=== PATIENT | female | born 1960 | race Caucasian/White ===

== ENCOUNTER 2017-07-23 13:09 | Emergency (ER) | payer MEDICARE, MEDICAID ==
[2017-07-23] MEDS ORDERED: Heparin Sodium 5,000 Units/ML Vial IVPUSH ONE (14:09)
[2017-07-23] MEDS ORDERED: Heparin Sodium/0.45% NaCl 25,000 UNITS/500 ML BAG IV ONE (14:10)
[2017-07-23] MEDS ORDERED: cefTRIAXone 1 GM Vial IVPUSH ONE (14:10)
--- NOTE | 2017-07-23 14:21 | EDM.PDOC ---
ED HPI GENERAL MEDICAL PROBLEM - General Chief Complaint: Cardiovascular Problem Stated Complaint: [id number] CHEST PAIN Time Seen by Provider: 07/23/17 13:40 Source of Information: Reports: Patient History Limitations: Reports: No Limitations - History of Present Illness INITIAL COMMENTS - FREE TEXT/NARRATIVE: This 57 yo female patient was sent to the ED from the [facility] due to increased shortness of breath, generalized body aches, elevated WBC, elevated Trop, creat 3.5, d-dimer 4470 and EKG showing sinus tach. Onset: Gradual Onset Date: 07/21/17 Duration: Day(s):, Constant, Getting Worse Location: Reports: Chest, Abdomen, Generalized Quality: Reports: Ache, Dull Severity: Moderate Improves with: Reports: None Worsens with: Reports: None Associated Symptoms: Reports: Cough, Shortness of Breath - Related Data Allergies Allergy/AdvReac Type Severity Reaction Status Date / Time lisinopril Allergy Nausea Verified 07/23/17 13:21 Home Meds: Home Meds Aspirin [Halfprin] 81 mg PO DAILY 07/23/17 [History] Cyanocobalamin (Vitamin B-12) [B-12] 1,000 mcg PO DAILY 07/23/17 [History] DULoxetine HCl [Duloxetine HCl] 30 mg PO DAILY 07/23/17 [History] Furosemide 20 mg PO DAILY 07/23/17 [History] Gabapentin [Neurontin] 100 mg PO DAILY 07/23/17 [History] Levothyroxine 112 mcg PO DAILY 07/23/17 [History] Loperamide [Imodium] 2 mg PO DAILY 07/23/17 [History] Multivit-Min/Iron Fum/Folic AC [Jhyvq-Eaksvex-Imohgbrs Tablet] 1 tab PO DAILY [History] Multivitamin [Daily Multiple Vitamin] 1 tab PO DAILY 07/23/17 [History] Ashby-3/DHA/Epa/Fish Oil [Ashby-3 Fish Oil 1,000 MG Sfgl] 1,000 mg PO DAILY [History] Simvastatin 40 mg PO DAILY 07/23/17 [History] Past Medical History HEENT History: Reports: Impaired Vision 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 Below) Other OB/BYN History: vulva cancer Endocrine/Metabolic History: Reports: Hyperthyroidism - Past Surgical History Female Surgical History: Reports: Other (See Below) Other Female Surgeries/Procedures: vulva cancer Musculoskeletal Surgical History: Reports: Other (See Below) Other Musculoskeletal Surgeries/Procedures:: left knee surgery Social & Family History - Family History Family Medical History: Noncontributory - Tobacco Use Smoking Status *Q: Current Every Day Smoker Years of Tobacco use: 20 Packs/Tins Daily: 0.5 - Caffeine Use Caffeine Use: Reports: Soda - Recreational Drug Use Recreational Drug Use: No ED ROS GENERAL - Review of Systems Review Of Systems: ROS reveals no pertinent complaints other than HPI. ED EXAM, GENERAL - Physical Exam Exam: See Below Exam Limited By: No Limitations General Appearance: Alert, WD/WN, Moderate Distress Eye Exam: Bilateral Eye: EOMI, Normal Inspection, PERRL Ears: Normal External Exam, Normal Canal, Hearing Grossly Normal, Normal TMs Nose: Normal Inspection, Normal Mucosa, No Blood Throat/Mouth: Normal Inspection, Normal Lips, Normal Teeth, Normal Gums, Normal Oropharynx, Normal Voice, No Airway Compromise Head: Atraumatic, Normocephalic Neck: Normal Inspection, Supple, Non-Tender, Full Range of Motion Respiratory/Chest: No Respiratory Distress, Lungs Clear, Normal Breath Sounds, No Accessory Muscle Use, Chest Non-Tender Cardiovascular: Normal Peripheral Pulses, Regular Rate, Rhythm, No Edema, No Gallop, No JVD, No Murmur, No Rub GI/Abdominal: Normal Bowel Sounds, Soft, Non-Tender, No Organomegaly, No Distention, No Abnormal Bruit, No Mass (Female) Exam: Deferred Rectal (Female) Exam: Deferred Back Exam: Normal Inspection, Full Range of Motion, NT Extremities: Normal Inspection, Normal Range of Motion, Non-Tender, Normal Capillary Refill, No Pedal Edema Neurological: Alert, Oriented, CN II-XII Intact, Normal Cognition, Normal Gait, Normal Reflexes, No Motor/Sensory Deficits Psychiatric: Normal Affect, Normal Mood Skin Exam: Warm, Dry, Intact, Normal Color, No Rash Lymphatic: No Adenopathy Course - Vital Signs Last Recorded V/S: Last Vital Signs Temp 37.6 C 07/23/17 13:22 Pulse 106 H 07/23/17 13:22 Resp 20 07/23/17 13:22 BP 140/64 07/23/17 13:22 Pulse Ox 91 L 07/23/17 13:22 - Orders/Labs/Meds Orders: Active Orders 24 hr Category Date Time Status EKG Documentation Completion [RC] URGENT Care 07/23/17 13:25 Ordered LACTIC ACID [CHEM] Stat Lab 07/23/17 13:51 Ordered UA W/MICROSCOPIC [URIN] Stat Lab 07/23/17 13:25 Ordered Heparin Sodium/0.45% NaCl [Heparin 25,000 Units in 1/2 Med 07/23/17 14:10 Ordered NS 500 ML] 25,000 units in 500 ml IV ONETIME Medication Orders Heparin Sodium/Sodium Chloride (Heparin 25,000 Units In 1/2 Ns 500 Ml) 25,000 units in 500 mls @ 31.57 mls/hr IV ONETIME ONE Stop: 07/24/17 06:00 Labs: Laboratory Tests 07/23/17 Range/Units 13:46 Urine Color Yellow (YELLOW) Urine Appearance Cloudy (CLEAR) Urine pH 7.0 (5.0-9.0) Ur Specific [place] 1.015 (1.005-1.030) Urine Protein >=300 H (NEGATIVE) Urine Glucose (UA) Negative (NEGATIVE) Urine Ketones Negative (NEGATIVE) Urine Occult Blood Moderate H (NEGATIVE) Urine Nitrite Positive H (NEGATIVE) Urine Bilirubin Negative (NEGATIVE) Urine Urobilinogen 0.2 (0.2-1.0) mg/dL Ur Leukocyte Esterase Small H (NEGATIVE) Urine RBC 30-40 H /HPF Urine WBC 75-100 H (0-5/HPF) /HPF Ur Epithelial Cells Moderate H /HPF Urine Bacteria Many H (0-FEW/HPF) /HPF Urine Mucus Not seen /LPF Meds: Medications Generic Name Dose Route Start Last Admin Trade Name Freq PRN Reason Stop Dose Admin Heparin Sodium/Sodium Chloride 25,000 units in 500 mls @ 31.57 mls/hr 14:10 Heparin 25,000 Units In 1/2 Ns 500 Ml IV 07/24/17 06:00 ONETIME ONE 12 UNITS/KG/HR Discontinued Medications Generic Name Dose Route Start Last Admin Trade Name Freq PRN Reason Stop Dose Admin Ceftriaxone Sodium 1 gm 07/23/17 14:10 Rocephin IVPUSH 07/23/17 14:11 ONETIME ONE Heparin Sodium (Porcine) 4,000 units 07/23/17 14:09 Heparin Sodium IVPUSH 07/23/17 14:10 .BOLUS ONE Departure - Departure Time of Disposition: 14:08 Disposition: DC/Tfer to Acute Hospital 02 Reason for Transfer *Q: Other Condition: Poor Clinical Impression: NSTEMI (non-ST elevated myocardial infarction) Leukocytosis Qualifiers: Leukocytosis type: bandemia Qualified Code(s): D72.825 - Bandemia Forms: Interfacility Transfer EMTALA Care Plan Goals: Discussed the examination, lab, EKG and history with Dr. Coleman. Dr. Coleman accepted the patient for continued evaluation and further management. The patient will be transported by [facility]. - My Orders Last 24 Hours: My Active Orders 07/23/17 13:25 EKG Documentation Completion [RC] URGENT UA W/MICROSCOPIC [URIN] Stat 07/23/17 13:51 LACTIC ACID [CHEM] Stat 07/23/17 14:10 Heparin Sodium/0.45% NaCl [Heparin 25,000 Units in 1/2 NS 500 ML] 25,000 units in 500 ml IV ONETIME - Assessment/Plan Last 24 Hours: My Active Orders 07/23/17 13:25 EKG Documentation Completion [RC] URGENT UA W/MICROSCOPIC [URIN] Stat 07/23/17 13:51 LACTIC ACID [CHEM] Stat 07/23/17 14:10 Heparin Sodium/0.45% NaCl [Heparin 25,000 Units in 1/2 NS 500 ML] 25,000 units in 500 ml IV ONETIME
--- NOTE | 2017-07-24 14:20 | EKG ---
07/23/2017 - KARLA LEONARD I reviewed the EKG and agree with the machine's reading. [facility] /[id number]
== END 2017-07-23 14:41 ==
LOC: DL.ED 13:09
DX: I21.4 Non-ST elevation (NSTEMI) myocardial infarction (principal); D72.825 Bandemia; E05.90 Thyrotoxicosis, unspecified without thyrotoxic crisis or storm; F17.210 Nicotine dependence, cigarettes, uncomplicated; Z88.8 Allergy status to other drugs, medicaments and biological substances; Z79.82 Long term (current) use of aspirin; Z79.899 Other long term (current) drug therapy
CPT/HCPCS: 36415; 81001; 83605; 93005; 93010; 96374; 96375; 96376; 99285; J0696; J1644

== ENCOUNTER 2018-10-07 05:36 | Day surgery (SDC) | payer MEDICARE, MEDICAID ==
[2018-10-07] MEDS ORDERED: Midazolam 1 MG/ML 2 ML SDV IV ONE (05:37)
[2018-10-07] MEDS ORDERED: fentaNYL 100 MCG/2 ML SDV IV ONE (05:37)
[2018-10-07] MEDS ORDERED: Sodium Chloride 0.9% 10 ML Syringe FLUSH PRN (06:00)
[2018-10-07] MEDS: Dextrose 5%-0.45% NaCl 1,000 ML IV SCH (06:05)
[2018-10-07] MEDS ORDERED: fentaNYL 100 MCG/2 ML SDV ONE (06:14)
[2018-10-07] MEDS ORDERED: Midazolam 1 MG/ML 2 ML SDV ONE (06:14)
[2018-10-07] MEDS: fentaNYL 100 MCG/2 ML SDV IV ONE ×2 (06:27→06:28)
[2018-10-07] MEDS: Midazolam 1 MG/ML 2 ML SDV IV ONE ×4 (06:28→06:36)
--- NOTE | 2018-10-07 11:35 | OR ---
DATE: 10/07/2018 PROCEDURE: Total colonoscopy. INSTRUMENT USED: [id number] Olympus video colonoscope. PREMEDICATIONS: Fentanyl 100 mcg intravenous, Versed 3.5 mg intravenous, nasal O2 cannula. The procedure was done under pulse oximetry, BP recording, and master automotive glass technician. INDICATION: The patient with intermittent small volume rectal bleeding and positive SIT. Colonoscopic examination is done for detection of any polypoid lesions and removal, endoscopic hemostasis therapy if needed. DESCRIPTION OF PROCEDURE: Initial rectal exam showed extensive perianal excoriations and also external hemorrhoidal tags. Rigid anoscopy was normal. The colonoscope was passed with ease. Numerous scattered diverticula were noted in the distal left colon along with deformity. The scope was passed with ease up to the ileocecal area. Photographs were taken of the normal-appearing cecum, identified by landmarks of appendiceal orifice and double-bulged ileocecal folds. No bleeding was noted from any of the visualized areas at the commencement of the examination. There was some amount of fecal material that had to be aspirated. The bowel preparation was adequate, [place] Class 2 in all the regions. No stricture. No vascular ectasia. No large isolated ulcerations seen. No evidence of diffuse inflammatory bowel disease in the form of friability, contact bleeding, or ulcerations. No polyp or tumor mass identified. Probing the proximal sides of folds and flexures using adequate distention and clearing up the stool material, withdrawal of the scope was made. Cecum to rectum time over 6 minutes. No bleeding was noted from any of the visualized areas at the completion of examination. IMPRESSION: 1. External hemorrhoids. 2. Diverticulosis. The patient tolerated the procedure well. [facility] /[id number]
== END 2018-10-07 08:50 | disposition home or self-care (01) ==
LOC: DL.ENDO 05:36
PROVIDERS: ATTEND Internal Medicine Gastroenterology
DX: K57.31 Diverticulosis of large intestine without perforation or abscess with bleeding (principal); K64.4 Residual hemorrhoidal skin tags; D69.6 Thrombocytopenia, unspecified; I12.9 Hypertensive chronic kidney disease with stage 1 through stage 4 chronic kidney disease, or unspecified chronic kidney disease; N18.9 Chronic kidney disease, unspecified; E03.9 Hypothyroidism, unspecified; F17.210 Nicotine dependence, cigarettes, uncomplicated; E66.09 Other obesity due to excess calories; Z88.8 Allergy status to other drugs, medicaments and biological substances; Z79.899 Other long term (current) drug therapy
CPT/HCPCS: G0121; J2250; J3010; J7042

== ENCOUNTER 2019-05-04 09:10 | Inpatient (IN) | payer MEDICARE, MEDICAID ==
[2019-05-04] MEDS ORDERED: Ondansetron 4 MG/2 ML SDV IVPUSH PRN (14:47)
[2019-05-04] MEDS ORDERED: Docusate Sodium 100 MG Cap PO PRN (14:47)
[2019-05-04] MEDS ORDERED: Acetaminophen 325 MG Tab PO PRN (14:47)
[2019-05-04] MEDS ORDERED: Ondansetron 4 MG Tab.DIS PO PRN (14:47)
[2019-05-04] MEDS ORDERED: Furosemide 20 MG Tab PO PRN (14:57)
[2019-05-04] MEDS ORDERED: Sodium Chloride 0.9% 10 ML Syringe FLUSH SCH (15:00)
--- NOTE | 2019-05-04 15:04 | PCM.HP ---
H&P History of Present Illness - General Date of Service: 05/04/19 Admit Problem/Dx: Admission Diagnosis/Problem Admission Diagnosis/Problem Weakness Source of Information: Patient - History of Present Illness Initial Comments - Free Text/Narative: The patient is a 59-year-old female with medical history of hypertension, chronic kidney disease, hypothyroidism, peripheral neuropathy, depression. The patient underwent surgery right hip replacement in November 2018. The surgery site became infected and the patient had to proceed for another surgery. She underwent revision of right total hip arthroplasty in April 2019. Patient was found to have infection involving that joint. Cultures grew group B streptococcus. Patient is transferred to the [facility] for physical and occupational therapy. - Related Data Allergies/Adverse Reactions: Allergies Allergy/AdvReac Type Severity Reaction Status Date / Time lisinopril AdvReac Nausea Verified 05/04/19 10:06 Home Medications: Home Meds Aspirin [Halfprin] 81 mg PO BID 07/23/17 [History] Cyanocobalamin (Vitamin B-12) [B-12] 1,000 mcg PO DAILY 07/23/17 [History] Furosemide 20 mg PO ASDIRECTED PRN 07/23/17 [History] Gabapentin [Neurontin] 200 mg PO DAILY 07/23/17 [History] Loperamide [Imodium] 2 mg PO DAILY PRN 07/23/17 [History] Multivitamin [Daily Multiple Vitamin] 1 tab PO DAILY 07/23/17 [History] Simvastatin 40 mg PO DAILY 07/23/17 [History] Acetaminophen [Tylenol] 650 mg PO Q6HR 05/04/19 [History] DULoxetine [Cymbalta] 60 mg PO DAILY 05/04/19 [History] Levothyroxine 175 mcg PO DAILY 05/04/19 [History] Vit A/C/E AC/Znox/Cupric Oxide [Eye Vitamin-Minerals Tablet] 1 tab PO DAILY [History] oxyCODONE 5 mg PO Q4HR PRN 05/04/19 [History] Past Medical History HEENT History: Reports: Cataract, Impaired Vision, Macular Degeneration Cardiovascular History: Reports: High Cholesterol, Hypertension, Other (See Below) Other Cardiovascular History: VENOUS INSUFFICIENCY Respiratory History: Reports: None Gastrointestinal History: Reports: None Genitourinary History: Reports: Chronic Renal Insuffiency, Other (See Below) Other Genitourinary History: RENAL CYST, Urine Frequency 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) Other OB/BYN History: vulva cancer Musculoskeletal History: Reports: None Neurological History: Reports: None Psychiatric History: Reports: None Endocrine/Metabolic History: Reports: Hypothyroidism Hematologic History: Reports: None Immunologic History: Reports: None Oncologic (Cancer) History: Reports: Other (See Below) Other Oncologic History: vulvular cancer Dermatologic History: Reports: Cellulitis, Other (See Below) Other Dermatologic History: LYMPHEDEMA - Infectious Disease History Infectious Disease History: Reports: Chicken Pox, Influenza, Shingles - Past Surgical History Head Surgeries/Procedures: Reports: None HEENT Surgical History: Reports: None Cardiovascular Surgical History: Reports: None GI Surgical History: Reports: None Female Surgical History: Reports: Breast Biopsy, Other (See Below) Other Female Surgeries/Procedures: vulva cancer Musculoskeletal Surgical History: Reports: Hip Replacement, Other (See Below) Other Musculoskeletal Surgeries/Procedures:: left knee surgery, total hip in November 2018 and revision April 2019 Social & Family History - Family History Family Medical History: Noncontributory - Tobacco Use Smoking Status *Q: Current Every Day Smoker Years of Tobacco use: 30 Packs/Tins Daily: 1.5 Month/Year Tobacco Last Used: April 2019 Second Hand Smoke Exposure: No - Caffeine Use Caffeine Use: Reports: Coffee, Soda Caffeine Use Comment: 2 cups daily. 4 bottles diet mt dew - Recreational Drug Use Recreational Drug Use: No H&P Review of Systems - Review of Systems: Review Of Systems: See Below General: Reports: No Symptoms HEENT: Reports: No Symptoms Pulmonary: Reports: No Symptoms Cardiovascular: Reports: No Symptoms Gastrointestinal: Reports: No Symptoms Musculoskeletal: Reports: Joint Pain, Muscle Stiffness Skin: Reports: No Symptoms Exam - Exam Exam: See Below - Vital Signs Vital Signs: Last Vital Signs Temp 36.4 C 05/04/19 13:23 Pulse 112 H 05/04/19 13:23 Resp 20 05/04/19 13:23 BP 142/60 H 05/04/19 13:23 Pulse Ox 97 05/04/19 13:23 Weight: 137.529 kg - Exam General: Alert, Oriented, Cooperative Neck: Supple, Trachea Midline, 2 Lungs: Clear to Auscultation, Normal Respiratory Effort Cardiovascular: Regular Rate, Regular Rhythm GI/Abdominal Exam: Normal Bowel Sounds, Soft, Non-Tender, No Organomegaly, No Distention, No Abnormal Bruit, No Mass, Pelvis Stable Back Exam: Normal Inspection, Full Range of Motion, NT Problem List Initiated/Reviewed/Updated: Yes Orders Last 24hrs: Active Orders 24 hr Category Date Time Status Patient Status [ADT] Routine ADT 05/04/19 14:47 Ordered Oxygen Therapy [RC] PRN Care 05/04/19 14:47 Ordered Up ad Malissa [RC] ASDIRECTED Care 05/04/19 14:47 Ordered Vital Signs [RC] Q4H Care 05/04/19 14:47 Ordered OT Evaluation and Treatment [CONS] Routine Cons 05/04/19 14:47 Ordered PT Evaluation and Treatment [CONS] Routine Cons 05/04/19 14:47 Ordered Regular Diet [DIET] Diet 05/04/19 Lunch Ordered Acetaminophen [Tylenol] Med 05/04/19 14:47 Ordered 650 mg PO Q4H PRN Aspirin [Halfprin] Med 05/04/19 21:00 Ordered 81 mg PO BID Cyanocobalamin (Vitamin B12) [Vitamin B12] Med 05/05/19 09:00 Ordered 1,000 mcg PO DAILY DULoxetine [Cymbalta] Med 05/05/19 09:00 Ordered 60 mg PO DAILY Docusate Sodium [Colace] Med 05/04/19 14:47 Ordered 100 mg PO BID PRN Furosemide [Lasix] Med 05/04/19 14:57 Ordered 20 mg PO ASDIRECTED PRN Gabapentin [Neurontin] Med 05/05/19 09:00 Ordered 200 mg PO DAILY Heparin Sodium Med 05/04/19 22:00 Ordered 5,000 units SUBCUT Q8HR Levothyroxine [Levothyroxine] Med 05/05/19 09:00 Ordered 175 mcg PO DAILY Multivitamin [Daily Multiple Vitamin] Med 05/05/19 09:00 Ordered 1 tab PO DAILY Ondansetron [Zofran ODT] Med 05/04/19 14:47 Ordered 4 mg PO Q6H PRN Ondansetron [Zofran] Med 05/04/19 14:47 Ordered 4 mg IVPUSH Q6H PRN Simvastatin [Zocor] Med 05/05/19 09:00 Ordered 40 mg PO DAILY Sodium Chloride 0.9% [Saline Flush] Med 05/04/19 15:00 Ordered 10 ml FLUSH Q24H Vit A/C/E AC/Znox/Cupric Oxide [Eye Vitamin-Minerals Med 05/05/19 09:00 Ordered Tablet] 1 tab PO DAILY cefTRIAXone [Rocephin] 2 gm Med 05/04/19 15:00 Ordered Sodium Chloride 0.9% [Normal Saline] 100 ml IV Q24H oxyCODONE Med 05/04/19 14:47 Ordered 5 mg PO Q4H PRN Resuscitation Status Routine Resus Stat 05/04/19 14:47 Ordered Medication Orders Acetaminophen (Tylenol) 650 mg PO Q4H PRN PRN Reason: Pain (Mild 1-3)/fever Docusate Sodium (Colace) 100 mg PO BID PRN PRN Reason: Constipation Heparin Sodium (Porcine) (Heparin Sodium) 5,000 units SUBCUT Q8HR [facility] Ceftriaxone Sodium 2 gm/ (Sodium Chloride) 100 mls @ 200 mls/hr IV Q24H [facility] Ondansetron HCl (Zofran) 4 mg IVPUSH Q6H PRN PRN Reason: Nausea/Vomiting Ondansetron HCl (Zofran Odt) 4 mg PO Q6H PRN PRN Reason: nausea, able to take PO Oxycodone HCl (Oxycodone) 5 mg PO Q4H PRN PRN Reason: Pain (moderate 4-6) Sodium Chloride (Saline Flush) 10 ml FLUSH Q24H [facility] Assessment/Plan Comment:: #. Infected right prosthetic hip joint. Patient is status post revision surgery Cultures grew group B strep Intravenous ceftriaxone 2 g every 24 hours #. Chronic kidney disease Avoid nephrotoxic agents #. Hypothyroidism Continue levothyroxine #. Peripheral neuropathy Gabapentin #. Tobacco use disorder Provide nicotine replacement #. Depression Continue current care.
[2019-05-04] MEDS ORDERED: Nicotine 21 MG/24 Hr Patch TRDERM PRN (15:05)
[2019-05-04] MEDS: cefTRIAXone 2 GM in Sodium Chloride 0.9% 100 ML IV SCH (16:02)
[2019-05-04] MEDS: oxyCODONE 5 MG Tab PO PRN (18:44)
[2019-05-04] MEDS: Simvastatin 40 MG Tab PO SCH (21:48)
[2019-05-04] MEDS: Aspirin 81 MG Tab.EC PO SCH (21:49)
[2019-05-04] MEDS: Sodium Chloride 0.9% 10 ML Syringe FLUSH SCH (21:50)
[2019-05-04] MEDS: Heparin Sodium 5,000 Units/ML Vial SUBCUT SCH (21:50)
[2019-05-05] MEDS: oxyCODONE 5 MG Tab PO PRN ×2 (00:25→13:14)
[2019-05-05] MEDS: Levothyroxine 75 MCG Tab PO SCH (06:13)
[2019-05-05] MEDS: Heparin Sodium 5,000 Units/ML Vial SUBCUT SCH ×3 (06:13→21:28)
[2019-05-05] MEDS: Levothyroxine 100 MCG Tab PO SCH (06:14)
[2019-05-05] MEDS ORDERED: Non-Formulary Medication 1 Each (Levothyroxine [Levothyroxine] 175 MCG) PO SCH (09:00)
[2019-05-05] MEDS: Gabapentin 100 MG Cap PO SCH (10:04)
[2019-05-05] MEDS: DULoxetine 30 MG Cap PO SCH (10:05)
[2019-05-05] MEDS: Aspirin 81 MG Tab.EC PO SCH ×2 (10:05→21:27)
[2019-05-05] MEDS: Cyanocobalamin (Vitamin B12) 1,000 MCG Tab PO SCH (10:05)
[2019-05-05] MEDS: Lutein/Minerals/Vit A,C & E Tab PO SCH (10:05)
[2019-05-05] MEDS: Multivitamins,Therapeutic Tab PO SCH (10:06)
[2019-05-05] MEDS: Sodium Chloride 0.9% 10 ML Syringe FLUSH SCH ×3 (10:08→21:29)
[2019-05-05] MEDS: cefTRIAXone 2 GM in Sodium Chloride 0.9% 100 ML IV SCH (15:16)
[2019-05-05] MEDS: Simvastatin 40 MG Tab PO SCH (21:28)
[2019-05-06] MEDS: Levothyroxine 75 MCG Tab PO SCH (05:22)
[2019-05-06] MEDS: Levothyroxine 100 MCG Tab PO SCH (05:22)
[2019-05-06] MEDS: Heparin Sodium 5,000 Units/ML Vial SUBCUT SCH ×2 (05:22→14:47)
[2019-05-06] MEDS: DULoxetine 30 MG Cap PO SCH (08:50)
[2019-05-06] MEDS: Gabapentin 100 MG Cap PO SCH (08:51)
[2019-05-06] MEDS: Multivitamins,Therapeutic Tab PO SCH (08:51)
[2019-05-06] MEDS: Cyanocobalamin (Vitamin B12) 1,000 MCG Tab PO SCH (08:51)
[2019-05-06] MEDS: Aspirin 81 MG Tab.EC PO SCH (08:51)
[2019-05-06] MEDS: Lutein/Minerals/Vit A,C & E Tab PO SCH (08:51)
[2019-05-06] MEDS: Sodium Chloride 0.9% 10 ML Syringe FLUSH SCH ×2 (08:52→14:44)
[2019-05-06] MEDS: oxyCODONE 5 MG Tab PO PRN ×2 (10:45→20:05)
[2019-05-06] MEDS: cefTRIAXone 2 GM in Sodium Chloride 0.9% 100 ML IV SCH (14:39)
[2019-05-07] MEDS: Sodium Chloride 0.9% 10 ML Syringe FLUSH SCH ×2 (00:35→08:57)
[2019-05-07] MEDS: Aspirin 81 MG Tab.EC PO SCH ×2 (00:35→08:57)
[2019-05-07] MEDS: Simvastatin 40 MG Tab PO SCH (00:35)
[2019-05-07] MEDS: Heparin Sodium 5,000 Units/ML Vial SUBCUT SCH ×3 (00:36→13:51)
[2019-05-07] MEDS: Levothyroxine 75 MCG Tab PO SCH (06:37)
[2019-05-07] MEDS: Levothyroxine 100 MCG Tab PO SCH (06:37)
[2019-05-07] MEDS: DULoxetine 30 MG Cap PO SCH (08:56)
[2019-05-07] MEDS: Multivitamins,Therapeutic Tab PO SCH (08:56)
[2019-05-07] MEDS: Cyanocobalamin (Vitamin B12) 1,000 MCG Tab PO SCH (08:56)
[2019-05-07] MEDS: Gabapentin 100 MG Cap PO SCH (08:56)
[2019-05-07] MEDS: Lutein/Minerals/Vit A,C & E Tab PO SCH (08:57)
--- NOTE | 2019-05-07 11:28 | PCM.DCSUM1 ---
Discharge Summary - Hospital Course Free Text/Narrative:: Gina Drew is a 59-year-old female with medical history of hypertension, chronic kidney disease, hypothyroidism, peripheral neuropathy, depression. Patient was transferred to swing bed after hospitalization for re- do of an earlier right hip replacement in November 2018., that had become infected. Cultures grew group B streptococcus and she was started on long- term antibiotics. Her stay in swing bed was unremarkable. Patient's clinically improved and was soon able to return home. Discharge diagnosis Infected right prosthetic hip joint. - To continue daily intravenous ceftriaxone 2 g for 4-6 weeks Chronic kidney disease Hypothyroidism Peripheral neuropathy Tobacco use disorder Depression - Discharge Data Discharge Date: 05/07/19 Discharge Disposition: Home, Self-Care 01 Condition: Good - Referral to Home Health Primary Care Physician: Nathalia Pichardo NP - Patient Summary/Data Consults: Consultations 05/04/19 14:47 OT Evaluation and Treatment [CONS] Routine PT Evaluation and Treatment [CONS] Routine - Patient Instructions Diet: Regular Diet as Tolerated Activity: As Tolerated - Discharge Plan *PRESCRIPTION DRUG MONITORING PROGRAM REVIEWED*: Not Applicable *COPY OF PRESCRIPTION DRUG MONITORING REPORT IN PATIENT FELIPE: Not Applicable Home Medications: Home Meds Aspirin [Halfprin] 81 mg PO BID 07/23/17 [History] Cyanocobalamin (Vitamin B-12) [B-12] 1,000 mcg PO DAILY 07/23/17 [History] Furosemide 20 mg PO ASDIRECTED PRN 07/23/17 [History] Gabapentin [Neurontin] 200 mg PO DAILY 07/23/17 [History] Loperamide [Imodium] 2 mg PO DAILY PRN 07/23/17 [History] Multivitamin [Daily Multiple Vitamin] 1 tab PO DAILY 07/23/17 [History] Simvastatin 40 mg PO DAILY 07/23/17 [History] Acetaminophen [Tylenol] 650 mg PO Q6HR 05/04/19 [History] DULoxetine [Cymbalta] 60 mg PO DAILY 05/04/19 [History] Levothyroxine 175 mcg PO DAILY 05/04/19 [History] Vit A/C/E AC/Znox/Cupric Oxide [Eye Vitamin-Minerals Tablet] 1 tab PO DAILY [History] oxyCODONE 5 mg PO Q4HR PRN 05/04/19 [History] Docusate Sodium [Colace] 100 mg PO BID PRN cap 05/07/19 [Rx] Patient Handouts: Ceftriaxone injection Referrals: Nathalia Pichardo NP [Primary Care Provider] - - Discharge Summary/Plan Comment DC Time >30 min.: No - General Info Admission Dx/Problem (Free Text: Admission Diagnosis/Problem Admission Diagnosis/Problem Weakness Functional Status: Reports: Pain Controlled - Review of Systems General: Reports: No Symptoms HEENT: Reports: No Symptoms Pulmonary: Reports: No Symptoms Cardiovascular: Reports: Edema Gastrointestinal: Reports: No Symptoms Genitourinary: Reports: No Symptoms Musculoskeletal: Reports: No Symptoms Skin: Reports: No Symptoms Neurological: Reports: No Symptoms Psychiatric: Reports: No Symptoms - Patient Data Vitals - Most Recent: Last Vital Signs Temp 98.2 F 05/07/19 08:00 Pulse 90 05/07/19 08:00 Resp 18 05/07/19 08:00 BP 122/64 05/07/19 08:00 Pulse Ox 96 05/07/19 08:00 Weight - Most Recent: 300 lb Med Orders - Current: Current Medications Acetaminophen (Tylenol) 650 mg PO Q4H PRN PRN Reason: Pain (Mild 1-3)/fever Last Admin: 05/05/19 21:25 Dose: 650 mg Aspirin (Halfprin) 81 mg PO BID [facility] Last Admin: 05/07/19 08:57 Dose: 81 mg Cyanocobalamin (Vitamin B12) 1,000 mcg PO DAILY [facility] Last Admin: 05/07/19 08:56 Dose: 1,000 mcg Docusate Sodium (Colace) 100 mg PO BID PRN PRN Reason: Constipation Duloxetine HCl (Cymbalta) 60 mg PO DAILY [facility] Last Admin: 05/07/19 08:56 Dose: 60 mg Furosemide (Lasix) 20 mg PO ASDIRECTED PRN PRN Reason: Edema Gabapentin (Neurontin) 200 mg PO DAILY [facility] Last Admin: 05/07/19 08:56 Dose: 200 mg Heparin Sodium (Porcine) (Heparin Sodium) 5,000 units SUBCUT Q8HR [facility] Last Admin: 05/07/19 06:34 Dose: 5,000 units Ceftriaxone Sodium 2 gm/ (Sodium Chloride) 100 mls @ 200 mls/hr IV Q24H [facility] Last Admin: 05/06/19 14:39 Dose: 200 mls/hr Levothyroxine Sodium (Synthroid) 100 mcg PO ACBREAKFAST [facility] Last Admin: 05/07/19 06:37 Dose: 100 mcg Levothyroxine Sodium (Levothyroxine) 75 mcg PO ACBREAKFAST [facility] Last Admin: 05/07/19 06:37 Dose: 75 mcg Multivitamins (Thera) 1 each PO DAILY [facility] Last Admin: 05/07/19 08:56 Dose: 1 each Multivitamins/Minerals (I-Chidi) 1 each PO DAILY [facility] Last Admin: 05/07/19 08:57 Dose: 1 each Nicotine (Habitrol) 21 mg TRDERM DAILY PRN PRN Reason: tobacco cessation Ondansetron HCl (Zofran) 4 mg IVPUSH Q6H PRN PRN Reason: Nausea/Vomiting Ondansetron HCl (Zofran Odt) 4 mg PO Q6H PRN PRN Reason: nausea, able to take PO Oxycodone HCl (Oxycodone) 5 mg PO Q4H PRN PRN Reason: Pain (moderate 4-6) Last Admin: 05/06/19 20:05 Dose: 5 mg Simvastatin (Zocor) 40 mg PO BEDTIME [facility] Last Admin: 05/07/19 00:35 Dose: 40 mg Sodium Chloride (Saline Flush) 10 ml FLUSH TID@0900,1500,2100 [facility] Last Admin: 05/07/19 08:57 Dose: 10 ml Discontinued Medications Sodium Chloride (Saline Flush) 10 ml FLUSH Q24H [facility] Last Admin: 05/04/19 16:03 Dose: 10 ml - Exam General: Reports: Alert, Oriented HEENT: Reports: Pupils Equal, Pupils Reactive, EOMI, Mucous Membr. Moist/[place] Neck: Reports: Supple Lungs: Reports: Clear to Auscultation, Normal Respiratory Effort Cardiovascular: Reports: Regular Rate, Regular Rhythm GI/Abdominal Exam: Normal Bowel Sounds, Soft, Non-Tender, No Organomegaly, No Distention, No Abnormal Bruit, No Mass, Pelvis Stable (Female) Exam: Deferred Rectal (Female) Exam: Deferred Back Exam: Reports: Normal Inspection, Full Range of Motion Extremities: Normal Range of Motion, Non-Tender, Pedal Edema Skin: Reports: Warm, Dry, Intact Wound/Incisions: Reports: Healing Well Neurological: Reports: No New Focal Deficit Psy/Mental Status: Reports: Alert, Normal Affect, Normal Mood
[2019-05-07] MEDS ORDERED: cefTRIAXone 2 GM in Sodium Chloride 0.9% 100 ML IV SCH (13:00)
[2019-05-07] MEDS: oxyCODONE 5 MG Tab PO PRN (13:44)
== END 2019-05-07 14:01 | disposition home or self-care (01) | DRG 950 ==
LOC: UNDOADMIN 12:51 → DL.MS 12:51
PROVIDERS: ADMIT Hospitalist; ATTEND Internal Medicine
DX: T84.51XD Infection and inflammatory reaction due to internal right hip prosthesis, subsequent encounter (principal); I12.9 Hypertensive chronic kidney disease with stage 1 through stage 4 chronic kidney disease, or unspecified chronic kidney disease; N18.9 Chronic kidney disease, unspecified; E03.9 Hypothyroidism, unspecified; G62.9 Polyneuropathy, unspecified; F32.9 Major depressive disorder, single episode, unspecified; R53.1 Weakness; F17.200 Nicotine dependence, unspecified, uncomplicated; Z79.82 Long term (current) use of aspirin; Z79.890 Hormone replacement therapy; Z79.899 Other long term (current) drug therapy; Z88.8 Allergy status to other drugs, medicaments and biological substances; Z28.82 Immunization not carried out because of caregiver refusal
CPT/HCPCS: 97110-GP; 97116-GP; 97162-GP; 97165-GO; 97530-GO; A9270-GY; J0696; J1644; J7050

== ENCOUNTER 2019-09-22 10:36 | Emergency (ER) | payer MEDICARE, MEDICAID ==
--- NOTE | 2019-09-22 11:19 | EDM.PDOC ---
ED HPI GENERAL MEDICAL PROBLEM - General Chief Complaint: General Stated Complaint: POSSIBLE INFECTION Time Seen by Provider: 09/22/19 11:10 Source of Information: Reports: Patient, RN, RN Notes Reviewed History Limitations: Reports: No Limitations - History of Present Illness INITIAL COMMENTS - FREE TEXT/NARRATIVE: Presents to ER with complaint of fever. Patient was seen in the clinic yesterday and labs were drawn at that time. Patient states she gets a fever about every 8 months for an unknown cause states she gets body aches fever and flulike symptoms and it generally resolves. States she is on long-term liquid antibiotics. Patient states surgery was done in [place], she has an infectious surgical doctor as well as an infectious disease doctor in [place] at [facility]. Patient denies any increased pain in the right hip recently. - Related Data Allergies Allergy/AdvReac Type Severity Reaction Status Date / Time lisinopril AdvReac Nausea Verified 09/22/19 10:46 Home Meds: Home Meds Aspirin [Halfprin] 81 mg PO BID 07/23/17 [History] Cyanocobalamin (Vitamin B-12) [B-12] 1,000 mcg PO DAILY 07/23/17 [History] Furosemide 20 mg PO ASDIRECTED PRN 07/23/17 [History] Gabapentin [Neurontin] 200 mg PO DAILY 07/23/17 [History] Loperamide [Imodium] 2 mg PO DAILY PRN 07/23/17 [History] Multivitamin [Daily Multiple Vitamin] 1 tab PO DAILY 07/23/17 [History] Simvastatin 40 mg PO DAILY 07/23/17 [History] Acetaminophen [Tylenol] 650 mg PO Q6HR 05/04/19 [History] DULoxetine [Cymbalta] 60 mg PO DAILY 05/04/19 [History] Levothyroxine 175 mcg PO DAILY 05/04/19 [History] Vit A/C/E AC/Znox/Cupric Oxide [Eye Vitamin-Minerals Tablet] 1 tab PO DAILY [History] oxyCODONE 5 mg PO Q4HR PRN 05/04/19 [History] Docusate Sodium [Colace] 100 mg PO BID PRN cap 05/07/19 [Rx] Past Medical History HEENT History: Reports: Cataract, Impaired Vision, Macular Degeneration Cardiovascular History: Reports: High Cholesterol, Hypertension, Other (See Below) Other Cardiovascular History: VENOUS INSUFFICIENCY Respiratory History: Reports: None Gastrointestinal History: Reports: None Genitourinary History: Reports: Chronic Renal Insuffiency, Other (See Below) Other Genitourinary History: RENAL CYST, Urine Frequency RENAL MEDICINE PHYSICIAN History: Reports: Other (See Below) Other RENAL MEDICINE PHYSICIAN History: vulva cancer Musculoskeletal History: Reports: None Neurological History: Reports: None Psychiatric History: Reports: None Endocrine/Metabolic History: Reports: Hypothyroidism, Obesity/BMI 30+ Hematologic History: Reports: None Immunologic History: Reports: None Oncologic (Cancer) History: Reports: Other (See Below) Other Oncologic History: vulvular cancer Dermatologic History: Reports: Cellulitis, Other (See Below) Other Dermatologic History: LYMPHEDEMA - Infectious Disease History Infectious Disease History: Reports: Chicken Pox, Influenza, Shingles - Past Surgical History Head Surgeries/Procedures: Reports: None HEENT Surgical History: Reports: None Cardiovascular Surgical History: Reports: None GI Surgical History: Reports: None Female Surgical History: Reports: Breast Biopsy, Other (See Below) Other Female Surgeries/Procedures: vulva cancer Musculoskeletal Surgical History: Reports: Hip Replacement, Other (See Below) Other Musculoskeletal Surgeries/Procedures:: left knee surgery, total hip in November 2018 and revision April 2019 Social & Family History - Family History Family Medical History: Noncontributory - Tobacco Use Smoking Status *Q: Current Every Day Smoker Years of Tobacco use: 20 Packs/Tins Daily: 1 - Caffeine Use Caffeine Use: Reports: Coffee, Soda Caffeine Use Comment: 2 cups daily. 4 bottles diet mt dew - Recreational Drug Use Recreational Drug Use: No ED ROS GENERAL - Review of Systems Review Of Systems: Comprehensive ROS is negative, except as noted in HPI. ED EXAM, GENERAL - Physical Exam Exam: See Below Exam Limited By: No Limitations General Appearance: Alert, WD/WN, No Apparent Distress Eye Exam: Bilateral Eye: EOMI, Normal Inspection Ears: Normal External Exam, Hearing Grossly Normal Nose: Normal Inspection Throat/Mouth: Normal Inspection, Normal Voice, No Airway Compromise Head: Atraumatic, Normocephalic Neck: Normal Inspection, Supple, Non-Tender, Full Range of Motion Respiratory/Chest: No Respiratory Distress, Lungs Clear, Normal Breath Sounds, No Accessory Muscle Use, Chest Non-Tender Cardiovascular: Normal Peripheral Pulses, Regular Rate, Rhythm, No Edema, No Gallop, No JVD, No Murmur, No Rub Peripheral Pulses: 2+: Radial (L), Radial (R) GI/Abdominal: Normal Bowel Sounds, Soft, Non-Tender (Female) Exam: Deferred Rectal (Female) Exam: Deferred Back Exam: Normal Inspection, Full Range of Motion, NT Extremities: Normal Inspection, Non-Tender, Normal Capillary Refill, Limited Range of Motion (Right hip/right leg) Neurological: Alert, Oriented, CN II-XII Intact, Normal Cognition, Normal Gait ( Cane), Normal Reflexes, No Motor/Sensory Deficits Psychiatric: Normal Affect, Normal Mood Skin Exam: Warm, Dry, Intact, Normal Color, No Rash Lymphatic: No Adenopathy Course - Vital Signs Last Recorded V/S: Last Vital Signs Temp 96.3 F L 09/22/19 10:48 Pulse 86 09/22/19 10:48 Resp 16 09/22/19 10:48 BP 148/81 H 09/22/19 10:48 Pulse Ox 96 09/22/19 10:48 - Orders/Labs/Meds Orders: Active Orders 24 hr Category Date Time Status CULTURE BLOOD [BC] Stat Lab 09/22/19 11:06 Received CULTURE BLOOD [BC] Stat Lab 09/22/19 11:11 Received Blood Culture x2 Reflex Set [OM.PC] Stat Oth 09/22/19 10:54 Ordered Labs: Laboratory Tests 09/22/19 09/22/19 09/22/19 Range/Units 11:06 11:06 11:06 WBC 8.2 (5.0-10.0) 10^3/uL RBC 4.25 (4.2-5.4) 10^6/uL Hgb 12.5 D (12.0-16.0) g/dL Hct 41.4 (37.0-47.0) % MCV 97.4 D (80-100) fL MCH 29.4 (27.0-34.0) pg MCHC 30.2 L (33.0-35.0) g/dL Plt Count 163 D (150-450) 10^3/uL Neut % (Auto) 75.9 H (42.2-75.2) % Lymph % (Auto) 14.9 L (20.5-50.1) % Miner % (Auto) 6.4 (2-8) % Eos % (Auto) 2.4 (1.0-3.0) % Baso % (Auto) 0.4 (0.0-1.0) % Add Manual Diff Yes Neutrophils % (Manual) 70 (42-75) % Band Neutrophils % 3 % Lymphocytes % (Manual) 22 (20-50) % Monocytes % (Manual) 5 (2-8) % ESR 85 H (0-20) mm/hr Sodium 142 (136-145) mmol/L Potassium 3.9 (3.5-5.1) mmol/L Chloride 105 (98-107) mmol/L Carbon Dioxide 27 (21-32) mmol/L Anion Gap 13.9 H (7-13) mEq/L BUN 23 H (7-18) mg/dL Creatinine 1.59 H (0.55-1.02) mg/dL Est Cr Clr Drug Dosing 34.28 mL/min Estimated GFR (MDRD) 33 BUN/Creatinine Ratio 14.5 (No establ ref range) Glucose 107 H (74-99) mg/dL Lactic Acid 0.9 (0.4-2.0) mmol/L Calcium 9.0 (8.5-10.1) mg/dL Total Bilirubin 0.4 (0.2-1.0) mg/dL AST 71 H (15-37) U/L ALT 122 H (14-59) U/L Alkaline Phosphatase 102 (46-116) U/L C-Reactive Protein 17.1 H (0.0-0.9) mg/dL Total Protein 7.1 (6.4-8.2) g/dL Albumin 2.7 L (3.4-5.0) g/dL Globulin 4.4 Albumin/Globulin Ratio 0.61 - Radiology Interpretation Free Text/Narrative:: Right hip x-ray PROCEDURE INFORMATION: Exam: XR Right Hip with Pelvis when Performed Exam date and time: 09/22/2019 11:19 AM Age: 59 years old Clinical indication: Other: Hip pain HX surgery April 2019; Prior surgery; Surgery type: Hip surgery April 2019; Additional info: Hip pain HX surgery may 2019 TECHNIQUE: Imaging protocol: XR Right hip with pelvis when performed. Views: 2 or 3 views. COMPARISON: No relevant prior studies available. FINDINGS: Bones/joints: A long-stem cemented hip prosthesis is in place. There is up to 3 mm lucency at the prosthesis-cement and prosthesis-bone interface in Gruen zone 1 that could indicate subsidence of the femoral component. Minimal lucency is present surrounding the acetabular component. Soft tissues: A patchy lucent appearance of the soft tissues surrounding the hip , particularly overlying the superolateral acetabulum where the bone appears osteopenic, raises the possibility of soft tissue gas. The fat plane along the medial hip is convex raising the possibility of the joint effusion. A CT scan is recommended for further evaluation. Comparison with prior postoperative imaging would be helpful. IMPRESSION: CT of the right hip recommended for further evaluation of possible soft tissue gas, subsidence of the femoral component, and a joint effusion, which may indicate infection. Comparison with prior postoperative imaging would also be helpful. Thank you for allowing us to participate in the care of your patient. Dictated and Authenticated by: Leigh Reyes MD 09/22/2019 11:55 AM Central Time ([place] & [place]) See rad report Departure - Departure Time of Disposition: 12:32 Disposition: Home, Self-Care 01 Condition: Good Clinical Impression: Chronic right hip pain, Fever of unknown origin - Discharge Information *PRESCRIPTION DRUG MONITORING PROGRAM REVIEWED*: No *COPY OF PRESCRIPTION DRUG MONITORING REPORT IN PATIENT FELIPE: No Instructions: Joint Pain Forms: ED Department Discharge Additional Instructions: Call the hospital and ask for the ER if you have any further questions Call your Primary physician in [place] Continue to use Tylenol and/or Ibuprofen as directed for pain/fever Sepsis Event Note (ED) - Evaluation Sepsis Screening Result: No Definite Risk - Focused Exam Vital Signs: Vital Signs Temp Pulse Resp BP Pulse Ox 09/22/19 10:48 96.3 F L 86 16 148/81 H 96 - My Orders Last 24 Hours: My Active Orders 09/22/19 10:54 Blood Culture x2 Reflex Set [OM.PC] Stat 09/22/19 11:06 CULTURE BLOOD [BC] Stat 09/22/19 11:11 CULTURE BLOOD [BC] Stat - Assessment/Plan Last 24 Hours: My Active Orders 09/22/19 10:54 Blood Culture x2 Reflex Set [OM.PC] Stat 09/22/19 11:06 CULTURE BLOOD [BC] Stat 09/22/19 11:11 CULTURE BLOOD [BC] Stat
[2019-09-22 11:47] LABS: ANION GAP 13.9 mEq/L (7-13)
--- NOTE | 2019-09-22 11:56 | CR ---
PROCEDURE INFORMATION: Exam: XR Right Hip with Pelvis when Performed Exam date and time: 09/22/2019 11:19 AM Age: 59 years old Clinical indication: Other: Hip pain HX surgery April 2019; Prior surgery; Surgery type: Hip surgery April 2019; Additional info: Hip pain HX surgery may 2019 TECHNIQUE: Imaging protocol: XR Right hip with pelvis when performed. Views: 2 or 3 views. COMPARISON: No relevant prior studies available. FINDINGS: Bones/joints: A long-stem cemented hip prosthesis is in place. There is up to 3 mm lucency at the prosthesis-cement and prosthesis-bone interface in Gruen zone 1 that could indicate subsidence of the femoral component. Minimal lucency is present surrounding the acetabular component. Soft tissues: A patchy lucent appearance of the soft tissues surrounding the hip, particularly overlying the superolateral acetabulum where the bone appears osteopenic, raises the possibility of soft tissue gas. The fat plane along the medial hip is convex raising the possibility of the joint effusion. A CT scan is recommended for further evaluation. Comparison with prior postoperative imaging would be helpful. IMPRESSION: CT of the right hip recommended for further evaluation of possible soft tissue gas, subsidence of the femoral component, and a joint effusion, which may indicate infection. Comparison with prior postoperative imaging would also be helpful.
== END 2019-09-22 12:32 | disposition home or self-care (01) ==
LOC: DL.ED 10:36
DX: M25.551 Pain in right hip (principal); G89.29 Other chronic pain; R50.9 Fever, unspecified; E78.00 Pure hypercholesterolemia, unspecified; I12.9 Hypertensive chronic kidney disease with stage 1 through stage 4 chronic kidney disease, or unspecified chronic kidney disease; N18.9 Chronic kidney disease, unspecified; E03.9 Hypothyroidism, unspecified; E66.9 Obesity, unspecified; Z68.42 Body mass index [BMI] 45.0-49.9, adult; F17.210 Nicotine dependence, cigarettes, uncomplicated; Z88.8 Allergy status to other drugs, medicaments and biological substances; Z79.82 Long term (current) use of aspirin; Z79.899 Other long term (current) drug therapy
CPT/HCPCS: 36415; 80053; 83605; 85025; 85651; 86140; 87040; 99283

== ENCOUNTER 2021-06-21 09:16 | Day surgery (SDC) | payer MEDICARE, MEDICAID ==
[~2021-06-21 09:16] MED LIST: Acetaminophen 325 MG Tab PO PRN; Acetaminophen/Codeine 300-30 MG Tab PO PRN; Cataract Ophth Solution EYELF ONE; Moxifloxacin 0.5% Ophth Soln 3 ML Bottle EYELF ONE; Ondansetron 4 MG/2 ML SDV IVPUSH PRN; Phenylephrine 10% Ophth Soln 5 ML Bot EYELF ONE; Phenylephrine 10% Ophth Soln 5 ML Bot EYELF PRN; Povidone-Iodine 5% Sterile Ophth Soln 30 ML Bottle EYELF ONE; Proparacaine 0.5% Ophth Soln 15 ML Bottle EYELF ONE; Sodium Chloride 0.9% 10 ML Syringe FLUSH PRN; Timolol Maleate 0.5% Ophth Soln 5 ML Bottle EYELF ONE; Tobramycin 0.3% Ophth Drops 5 ML Bottle EYELF ONE; Tropicamide 1% Ophth Soln 15 ML Bottle EYELF ONE
[2021-06-21] MEDS ORDERED: Dexamethasone 4 MG/ML SDV IV ONE (09:17)
[2021-06-21] MEDS ORDERED: Midazolam 1 MG/ML 2 ML SDV IV ONE (09:17)
[2021-06-21] MEDS ORDERED: Sodium Chloride 0.9% 10 ML Syringe IV ONE (09:17)
[2021-06-21] MEDS ORDERED: Lidocaine 1% 30 ML SDV ONE (10:22)
[2021-06-21] MEDS ORDERED: Tetracaine HCl/PF 0.5% 4 ML Bottle EYELF ONE (10:23)
[2021-06-21] MEDS ORDERED: Povidone-Iodine 5% Sterile Ophth Soln 30 ML Bottle EYELF ONE (10:23)
[2021-06-21] MEDS ORDERED: Diclofenac Sodium 0.1% Ophth Soln 5 ML Bottle EYELF ONE (10:23)
[2021-06-21] MEDS ORDERED: Dexamethasone/Neomycin/Polymyxin B Ophth Oint 3.5 GM Tube EYELF ONE (10:23)
[2021-06-21] MEDS ORDERED: Apraclonidine 0.5% Ophth Soln 5 ML Bot EYELF ONE (10:23)
[2021-06-21] MEDS ORDERED: Chondroitin Sulfate/Hyaluronate Sodium Ophth Inj 0.75 ML Syringe EYELF ONE (10:24)
[2021-06-21] MEDS ORDERED: Vancomycin 500 MG SDV EYELF ONE (10:24)
[2021-06-21] MEDS ORDERED: Balanced Salt Solution Ophth Irrig 500 ML Bottle IOCULAR ONE (10:24)
[2021-06-21] MEDS ORDERED: Dexamethasone 4 MG/ML SDV IOCULAR ONE (10:25)
== END 2021-06-21 11:33 | disposition home or self-care (01) ==
LOC: DL.SDS 09:16
PROVIDERS: ATTEND Ophthalmology
DX: H25.812 Combined forms of age-related cataract, left eye (principal); I12.9 Hypertensive chronic kidney disease with stage 1 through stage 4 chronic kidney disease, or unspecified chronic kidney disease; E03.9 Hypothyroidism, unspecified; E78.5 Hyperlipidemia, unspecified; E66.01 Morbid (severe) obesity due to excess calories; G62.9 Polyneuropathy, unspecified; R73.03 Prediabetes; N18.32 Chronic kidney disease, stage 3b; Z98.890 Other specified postprocedural states; Z87.891 Personal history of nicotine dependence; Z79.899 Other long term (current) drug therapy; Z79.890 Hormone replacement therapy; Z88.8 Allergy status to other drugs, medicaments and biological substances; Z68.43 Body mass index [BMI] 50.0-59.9, adult
CPT/HCPCS: 00142; A9270-GY; J1100; J2250; J3370; J3490; V2632

== ENCOUNTER 2021-07-05 08:53 | Day surgery (SDC) | payer MEDICARE, MEDICAID ==
[2021-07-05] MEDS ORDERED: Midazolam 1 MG/ML 2 ML SDV IV ONE (08:54)
[2021-07-05] MEDS ORDERED: Dexamethasone 4 MG/ML SDV IV ONE (08:54)
[2021-07-05] MEDS ORDERED: Moxifloxacin 0.5% Ophth Soln 3 ML Bottle EYERT ONE (09:00)
[2021-07-05] MEDS ORDERED: Tropicamide 1% Ophth Soln 15 ML Bottle EYERT ONE (09:00)
[2021-07-05] MEDS ORDERED: Povidone-Iodine 5% Sterile Ophth Soln 30 ML Bottle EYERT ONE ×2 (09:00→10:09)
[2021-07-05] MEDS ORDERED: Ondansetron 4 MG/2 ML SDV IVPUSH PRN (09:00)
[2021-07-05] MEDS ORDERED: Timolol Maleate 0.5% Ophth Soln 5 ML Bottle EYERT ONE (09:00)
[2021-07-05] MEDS ORDERED: Sodium Chloride 0.9% 10 ML Syringe FLUSH PRN (09:00)
[2021-07-05] MEDS ORDERED: Phenylephrine 10% Ophth Soln 5 ML Bot EYERT ONE (09:00)
[2021-07-05] MEDS ORDERED: Cataract Ophth Solution EYERT ONE (09:00)
[2021-07-05] MEDS ORDERED: Acetaminophen 325 MG Tab PO PRN (09:00)
[2021-07-05] MEDS ORDERED: Acetaminophen/Codeine 300-30 MG Tab PO PRN (09:00)
[2021-07-05] MEDS ORDERED: Proparacaine 0.5% Ophth Soln 15 ML Bottle EYERT ONE (09:00)
[2021-07-05] MEDS ORDERED: Lidocaine 1% 30 ML SDV ONE (10:09)
[2021-07-05] MEDS ORDERED: Tetracaine HCl/PF 0.5% 4 ML Bottle EYERT ONE (10:09)
[2021-07-05] MEDS ORDERED: Dexamethasone/Neomycin/Polymyxin B Ophth Oint 3.5 GM Tube EYERT ONE (10:10)
[2021-07-05] MEDS ORDERED: Diclofenac Sodium 0.1% Ophth Soln 5 ML Bottle EYERT ONE (10:10)
[2021-07-05] MEDS ORDERED: Apraclonidine 0.5% Ophth Soln 5 ML Bot EYERT ONE (10:10)
[2021-07-05] MEDS ORDERED: Balanced Salt Solution Ophth Irrig 500 ML Bottle IOCULAR ONE (10:10)
[2021-07-05] MEDS ORDERED: Chondroitin Sulfate/Hyaluronate Sodium Ophth Inj 0.75 ML Syringe EYERT ONE (10:11)
[2021-07-05] MEDS ORDERED: Vancomycin 500 MG SDV EYERT ONE (10:11)
== END 2021-07-05 11:15 | disposition home or self-care (01) ==
LOC: DL.SDS 08:53
PROVIDERS: ATTEND Ophthalmology
DX: H25.811 Combined forms of age-related cataract, right eye (principal); I12.9 Hypertensive chronic kidney disease with stage 1 through stage 4 chronic kidney disease, or unspecified chronic kidney disease; E03.8 Other specified hypothyroidism; E78.5 Hyperlipidemia, unspecified; R73.03 Prediabetes; G62.9 Polyneuropathy, unspecified; E66.01 Morbid (severe) obesity due to excess calories; N18.32 Chronic kidney disease, stage 3b; Z88.8 Allergy status to other drugs, medicaments and biological substances; Z87.891 Personal history of nicotine dependence; Z79.890 Hormone replacement therapy; Z79.899 Other long term (current) drug therapy; Z68.42 Body mass index [BMI] 45.0-49.9, adult; Z98.890 Other specified postprocedural states
CPT/HCPCS: 66984; A9270; J1100; J2250; J3370; J3490; V2632; 00142

== ENCOUNTER 2021-10-08 12:24 | Emergency (ER) | payer MEDICARE, MEDICAID ==
[2021-10-08] MEDS ORDERED: Ondansetron 4 MG/2 ML SDV IVPUSH ONE (13:44)
[2021-10-08] MEDS ORDERED: HYDROmorphone 0.5 MG/0.5 ML Syringe IVPUSH ONE (13:44)
== END 2021-10-08 14:05 ==
LOC: DL.ED 12:24
DX: S72.001A Fracture of unspecified part of neck of right femur, initial encounter for closed fracture (principal); E78.00 Pure hypercholesterolemia, unspecified; I12.9 Hypertensive chronic kidney disease with stage 1 through stage 4 chronic kidney disease, or unspecified chronic kidney disease; N18.9 Chronic kidney disease, unspecified; E03.9 Hypothyroidism, unspecified; E66.9 Obesity, unspecified; Z68.42 Body mass index [BMI] 45.0-49.9, adult; Z88.8 Allergy status to other drugs, medicaments and biological substances; Z20.822 Contact with and (suspected) exposure to COVID-19; Z79.82 Long term (current) use of aspirin; W01.198A Fall on same level from slipping, tripping and stumbling with subsequent striking against other object, initial encounter; Y92.002 Bathroom of unspecified non-institutional (private) residence as the place of occurrence of the external cause
CPT/HCPCS: 73502; 73552; 96374; 96375; 99285; J1170; J2405; U0002; 99283